=== PATIENT | male | born 1995 | race Caucasian/White ===

== ENCOUNTER 2021-05-02 20:07 | Emergency (ER) | payer OTHER, SELFPAY ==
--- NOTE | ~2021-05-02 | XR_ITS ---
EXAMINATION: XR KNEE, LEFT XR ANKLE, LEFT CLINICAL INFORMATION: Deformity and pain at the left ankle. Tibial and fibular fractures. COMPARISON: None TECHNIQUE: AP and lateral views of the left knee. AP, lateral, and oblique views of the left ankle. FINDINGS: Left knee: No fracture or malalignment. Proximal fibula is intact. No joint effusion. Soft tissues are unremarkable. Left ankle: There is a oblique Jay B distal fibular fracture with lateral displacement of the lateral malleolar fragment by 2 mm. There is a transverse fracture to the medial malleolus. This fracture may be acute on chronic as there is a sclerotic appearing medial malleolar fragment just distal to the fracture line. Soft tissues are swollen. Ankle mortise is symmetric. Talus is intact. XR/XR ankle LT min 3V IMPRESSION: Bimalleolar fracture with relative preservation of the ankle mortise. Medial malleolar fracture appears acute, though there may be a chronic fracture at the tip of the medial malleolus. Soft tissue swelling.
--- NOTE | ~2021-05-02 | XR_ITS ---
EXAMINATION: XR KNEE, LEFT XR ANKLE, LEFT CLINICAL INFORMATION: Deformity and pain at the left ankle. Tibial and fibular fractures. COMPARISON: None TECHNIQUE: AP and lateral views of the left knee. AP, lateral, and oblique views of the left ankle. FINDINGS: Left knee: No fracture or malalignment. Proximal fibula is intact. No joint effusion. Soft tissues are unremarkable. Left ankle: There is a oblique Jay B distal fibular fracture with lateral displacement of the lateral malleolar fragment by 2 mm. There is a transverse fracture to the medial malleolus. This fracture may be acute on chronic as there is a sclerotic appearing medial malleolar fragment just distal to the fracture line. Soft tissues are swollen. Ankle mortise is symmetric. Talus is intact. XR/XR knee LT 2V IMPRESSION: Bimalleolar fracture with relative preservation of the ankle mortise. Medial malleolar fracture appears acute, though there may be a chronic fracture at the tip of the medial malleolus. Soft tissue swelling.
[2021-05-02 20:21] VITALS: BP 131/77; PULSE 96; RESP 18; TEMP 36.6; O2SAT 100; BMI 24.0
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
[2021-05-02] MEDS: oxyCODONE HCl Immed Release 5 MG TABLET 10 MG PO (21:18)
[2021-05-02] MEDS: Ketorolac Tromethamine 60 MG/2 ML VIAL IM (21:19)
[2021-05-02] MEDS: Diphth,Pertus(ACell),Tet Adult 0.5 ML SYRINGE IM (21:19)
--- NOTE | 2021-05-02 23:23 | PC.NURSE ---
POSTEROR SHORT WITH STIRUP PLACED CHECKED BY MARKY RANDLE.
== END 2021-05-02 23:28 | disposition home or self-care (01) ==
PROVIDERS: Emergency Provider Emergency Medicine Emergency Medical Services
DX: S82.62XA Displaced fracture of lateral malleolus of left fibula, initial encounter for closed fracture (principal); M79.662 Pain in left lower leg; V19.9XXA Pedal cyclist (driver) (passenger) injured in unspecified traffic accident, initial encounter; Y93.9 Activity, unspecified; Y92.9 Unspecified place or not applicable; Y99.9 Unspecified external cause status; Z79.899 Other long term (current) drug therapy
CPT/HCPCS: 29505; 73560; 73610; 90471; 90715; 96372; 99284; J1885

== ENCOUNTER → 2021-05-04 09:10 | Outpatient (BNVA) | payer OTHER, SELFPAY | PROVIDERS: Visit Provider Physician Assistant ==

== ENCOUNTER 2021-05-10 10:13 | Day surgery (SDC) | payer OTHER, SELFPAY ==
--- NOTE | 2021-05-07 08:17 | HO.ANESPROP2 ---
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
[2021-05-10] VITALS (11 sets, daily range): BP systolic 131–171; BP diastolic 90–115; PULSE 71–114; RESP 15–20; TEMP 36.9–37.3; O2SAT 95–100; BMI 23.6
--- NOTE | ~2021-05-10 | FL_ITS ---
EXAMINATION: XR FLUOROSCOPY WITH IMAGES CLINICAL INFORMATION: Reduction fracture. COMPARISON: Radiographs left ankle 05/02/2021 TECHNIQUE: Fluoroscopy performed by Dr. Blackburn Instrum. Fluoroscopy time: 0.2 minutes DAP: 0.0104 mGycm2 Images: 2 FINDINGS: The acute lateral malleoli fracture is reduced with compression plate and screws. Fracture fragments are in near-anatomic alignment. Hardware is intact. Ankle mortise is symmetric. There is a fracture fragment medial malleolus, likely chronic. FL/FL guidance in OR IMPRESSION: Status post reduction lateral malleoli fracture. Hardware intact.
--- NOTE | 2021-05-10 07:39 | MHC.SHP ---
Pre-Procedural Eval Section A Date of Service: 05/10/21 The patient is an INPATIENT: No Changes since office visit: No Cold of Flu in the past 2 weeks, No New Medical Problems, No Changes in Medication and No Patient answered all questions The History & Physical has been completed within 30 days and I have reviewed it.: Yes Section B Chief Complaint: displaced bimalleolar fx of left leg Allergies: Allergies Allergy/AdvReac Type Severity Reaction Status Date / Time No Known Allergies Allergy Verified 05/04/21 09:17 Plan I have reviewed the history and physical and performed a pertinent physical examination on my patient. No changes have occurred unless specified.
--- NOTE | 2021-05-10 10:36 | P.CONAN_ITS ---
FORMERLY [facility], [facility] Active Problems Active Problems: All Active Problems (Updated 05/05/21 @ 10:53 by Leta herron PA-C) Bimalleolar fracture of left ankle (Acute) Past Medical History Medical History No active medical problems Surgical History Surgical History No history of previous surgery Social History Social History (Updated 05/04/21 @ 09:18 by Domenic Bee) Patient Tobacco Use Status: Never used Tobacco Use of substances other than those prescribed or required for medical reasons: Yes Substance Use Frequency: Weekly Are you DNR?: No Advance Directives: No Advance Directives Information Provided: Yes Current occupational status: employed Current occupation: lt handed/junior mechanical engineer Meds Allergies Allergy/AdvReac Type Severity Reaction Status Date / Time No Known Allergies Allergy Verified 05/10/21 10:20 Active Medications: Current Medications Generic Name Dose Route Start Last Admin Trade Name Freq PRN Reason Stop Dose Admin Lactated Ringer's 1,000 mls @ 100 mls/hr 05/10/21 10:15 Lr IVCONT .Q10H NEREYDA Exam Exam Date and Time: May 10, 2021 1036 Height,Weight and Vital Signs: Height 5 ft 10 in Weight 74.843 kg Airway Mallampati Class: II TM Dist: >3cm Neck ROM: Full
[2021-05-10] MEDS: Lactated Ringers 1,000 ML 100 ML IVCONT (10:45)
[2021-05-10] MEDS: fentaNYL citrate/PF 100 MCG/2 ML VIAL 50 MCG IVPUSH ×2 (12:36→12:41)
[2021-05-10] MEDS: oxyCODONE HCl Immed Release 5 MG TABLET 10 MG PO (12:47)
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
== END 2021-05-10 15:00 | disposition home or self-care (01) ==
PROVIDERS: Visit Provider Orthopaedic Surgery
PROC: (CPT 27792; principal; 2021-05-10 12:20)
DX: S82.62XA Displaced fracture of lateral malleolus of left fibula, initial encounter for closed fracture (principal); X58.XXXA Exposure to other specified factors, initial encounter; Y93.55 Activity, bike riding; Y92.9 Unspecified place or not applicable; Y99.8 Other external cause status
CPT/HCPCS: 27792; C1713; J0690; J1100; J1170; J2250; J2405; J3010

== ENCOUNTER → 2021-05-19 08:30 | Outpatient (BNVA) | payer OTHER, SELFPAY | PROVIDERS: Visit Provider Orthopaedic Surgery ==

== ENCOUNTER 2021-06-10 07:18 | Outpatient (REF) | payer OTHER, SELFPAY ==
--- NOTE | ~2021-06-10 | XR_ITS ---
EXAMINATION: XR ANKLE, LEFT CLINICAL INFORMATION: Unspecified ankle pain COMPARISON: 05/02/2021 TECHNIQUE: AP, lateral, and mortise views of the left ankle. FINDINGS: There has been interval placement of a lateral side plate and screws transfixing the previously seen oblique distal fibular fracture. Alignment is now near anatomic. The fracture line remains visible with no bridging fracture callus. Again seen is a well-corticated medial malleolar fracture fragment consistent with a chronic fracture fragment. There is additional transverse lucency consistent with resorption along a subacute medial malleolar fracture. XR/XR ankle LT min 3V IMPRESSION: Interval ORIF oblique distal fibular fracture. Subacute transverse fracture of the medial malleolus seen in addition to chronic appearing fracture fragment.
== END 2021-06-10 07:19 | disposition home or self-care (01) ==
LOC: HO.HOSX 07:18
PROVIDERS: Visit Provider Physician Assistant
DX: S82.842D Displaced bimalleolar fracture of left lower leg, subsequent encounter for closed fracture with routine healing (principal)
CPT/HCPCS: 73610

== ENCOUNTER 2021-07-09 07:19 | Outpatient (REF) | payer OTHER, SELFPAY ==
--- NOTE | ~2021-07-09 | XR_ITS ---
EXAMINATION: XR ANKLE, LEFT CLINICAL INFORMATION: Left ankle pain. COMPARISON: 06/10/2021 and 05/02/2021. TECHNIQUE: AP, lateral, and mortise views of the left ankle. FINDINGS: There is a stable postoperative appearance status post plate and side screw fixation of the distal left fibular fracture. No evidence of hardware failure. Fracture line is still evident, however, there does appear to be some degree of fibrous and bony union. There also appears to be some bony bridging involving the medial malleolar fracture fragments. The ankle mortise appears intact. XR/XR ankle LT min 3V IMPRESSION: Stable alignment of left ankle fractures with evidence of progression in healing.
== END 2021-07-09 07:20 | disposition home or self-care (01) ==
LOC: HO.HOSX 07:19
PROVIDERS: Visit Provider Physician Assistant
DX: M25.572 Pain in left ankle and joints of left foot (principal); Z98.890 Other specified postprocedural states; Z87.81 Personal history of (healed) traumatic fracture
CPT/HCPCS: 73610

== ENCOUNTER → 2021-08-20 07:52 | Outpatient (BNVA) | payer OTHER, SELFPAY | PROVIDERS: Visit Provider Physician Assistant ==